=== PATIENT | female | born 1960 | race Caucasian/White ===

== ENCOUNTER 2020-05-01 11:13 | Emergency (ER) | payer MEDICARE, MEDICAID ==
[~2020-05-01] VITALS: Ht 157.5 cm; Wt 80.0 kg
[~2020-05-01 11:13] MED LIST: CLON-528 PO; DES150T PO; FLUO20CA39 PO; IBUP-1984 PO; LAMO25TA62 PO; ZIPR20CA2 PO
[2020-05-01 11:45] LABS: BASOPHILS % (AUTO) 0.8 % (0-1); EOSINOPHILS # (AUTO) 0.2 X10'3 (0-0.9); EOSINOPHILS % (AUTO) 3.4 % (0-6); HEMATOCRIT 40.1 % (35.0-45.0); HEMOGLOBIN 13.7 g/dl (12.0-16.0); LYMPHOCYTES # (AUTO) 1.7 X10'3 (1.1-4.8); LYMPHOCYTES % (AUTO) 39.2 % (21-51); MEAN CORPUSCULAR HEMOGLOBIN 32.8 PG (27.0-31.0); MEAN CORPUSCULAR HGB CONC 34.1 g/dL (33.0-36.5); MEAN CORPUSCULAR VOLUME 96.1 FL (78-98); MEAN PLATELET VOLUME 7.7 FL (7.4-10.4); MONOCYTES # (AUTO) 0.8 X10'3 (0-0.9); MONOCYTES % (AUTO) 18.6 % (2-12); NEUTROPHILS # (AUTO) 1.7 X10'3 (1.8-7.7); PLATELET COUNT 202 X10'3 (140-440); RED BLOOD COUNT 4.17 X10'6 (4.20-5.60); RED CELL DISTRIBUTION WIDTH 13.9 % (11.5-14.5); WHITE BLOOD COUNT 4.4 X10'3 (4.5-11.0)
[2020-05-01 11:59] LABS: ALANINE AMINOTRANSFERASE 12 U/L (12-78); ALBUMIN 2.7 G/DL (3.4-5.0); ALBUMIN/GLOBULIN RATIO 0.7 (1.1-1.5); ALKALINE PHOSPHATASE 68 IU/L (46-116); ANION GAP 8 (8-16); ASPARTATE AMINO TRANSFERASE 17 U/L (10-37); BILIRUBIN,TOTAL 0.2 MG/DL (0.1-1.0); BLOOD UREA NITROGEN 16 MG/DL (7-18); BUN/CREATININE RATIO 13.9 (6.6-38.0); CALCIUM 8.8 MG/DL (8.5-10.1); CHLORIDE 108 MMOL/L (99-107); CREATININE 1.15 MG/DL (0.40-0.90); GLUCOSE 104 MG/DL (70-104); SODIUM 144 MMOL/L (135-145); TOTAL CARBON DIOXIDE 28.2 MMOL/L (24-32); TOTAL PROTEIN 6.4 G/DL (6.4-8.2); eGFR 48 ML/MIN
[2020-05-01 12:07] LABS: ETHANOL < 0.010 GM/DL (0.0-0.010)
[2020-05-01 14:01] LABS: TOTAL CELLS COUNTED 100
[2020-05-01 14:02] LABS: PLATELET ESTIMATE NORMAL
[2020-05-01 15:04] LABS: CLARITY,URINE SLIGHTLY CLOUDY (Clear); GLUCOSE, URINE NEGATIVE (Neg); KETONES,URINE 15 mg/dl (Neg); LEUKOCYTE ESTERASE ,URINE NEGATIVE (Neg); NITRITES, URINE NEGATIVE (Neg); OCCULT BLOOD,URINE NEGATIVE (Neg); PH,URINE 6.5 (4.8-8.0); PROTEIN,URINE NEGATIVE (Neg)
[2020-05-01 15:07] LABS: COLOR,URINE DARK YELLOW (Yellow); UA COLLECTION TYPE CLN CATCH MIDSTREAM
--- NOTE | 2020-05-01 15:11 | NUR ---
PER TALON ORNELAS, I CALLED THE TAD OFFICE AT [facility] [phone]. ALOK STATED THAT THE 4122 WAS WRITTEN DUE TO GRAVELY DISABLED. I PROVIDED MY NAME AND ER NUMBER AND ALOK STATED THAT HER BUSINESS INTELLIGENCE CONSULTANT WILL CALL ME BACK.
[2020-05-01 15:35] LABS: WBC,URINE 0-4 /HPF (0-4)
[2020-05-01 15:36] LABS: BACTERIA,URINE FEW /HPF (Neg); RBC,URINE NONE SEEN /HPF (0-2); SQUAMOUS EPITHELIAL CELL,UR MODERATE /LPF (FEW)
[2020-05-01 15:45] LABS: URINE AMPHETAMINE SCREEN NEGATIVE (Neg); URINE BARBITUATE SCREEN NEGATIVE (Neg); URINE BENZODIAZEPINES SCREEN NEGATIVE (Neg); URINE CANNABINOID SCREEN NEGATIVE (Neg); URINE COCAINE SCREEN NEGATIVE (Neg); URINE METHADONE SCREEN NEGATIVE (Neg); URINE OPIATE SCREEN NEGATIVE (Neg); URINE PHENCYCLIDINE SCREEN NEGATIVE (Neg)
--- NOTE | 2020-05-01 16:16 | NUR ---
SPOKE TO ANANT MARTELL FROM [facility]. PER ANANT, PATIENT HAS BEEN DECOMPENSATING IN THE LAST 3 WEEKS. [facility] NURSE FILLS HER MEDICATION WEEKY PILL BOX, THE NURSE SEES HER DAILY, AND JENNY IS TAKING A WEEKS WORTH OF MEDICATION IN ONE DAY. ALSO, TODAY, PATIENT WAS LAYING IN A URINE SOAKED BED WITH FECAL MATERIAL AROUND HER PLACE AT [facility]. PATIENT HAD NOT SHOWERED IN OVER A WEEK. THE NURSE TODAY CLEANED HER UP AND PUT CLEAN CLOTHES. PATIENT WAS DISCHARGED FROM [facility] WITH A TORSO BRACE WHICH SHE IS WEARING, AT THAT TIME SHE WENT HOME. TALON ORNELAS AWARE OF REASONS FOR GRAVELY DISABLED DETERMINATION
[2020-05-01] MEDS ORDERED: PALI819S INJ (17:07)
[2020-05-01] MEDS ORDERED: OLAN20TA34 PO (17:07)
[2020-05-01] MEDS ORDERED: HYDR-3686 PO (17:07)
[2020-05-01] MEDS ORDERED: DIVA500T9 PO (17:07)
[2020-05-01] MEDS ORDERED: BUPR75TA12 PO (17:07)
[2020-05-01] MEDS ORDERED: LEVO75TA PO (17:47)
--- NOTE | 2020-05-01 19:00 | NUR ---
PT up to use the bathroom, steady gait, no issues
--- NOTE | 2020-05-01 19:42 | NUR ---
Pt is sitting up in bed, went over medications with pt and completed med rec, signed and faxed to pharmacy
[2020-05-01] MEDS ORDERED: hydrOXYzine 25 MG tablet PO PRN (20:10)
[2020-05-01] MEDS ORDERED: clonazePAM 1mg tablet PO ONE (20:45)
[2020-05-01] MEDS: ibuprofen tablet 400 MG TABLET PO PRN (20:59)
[2020-05-01] MEDS ORDERED: lamoTRIgine 25mg tablet PO SCH (21:00)
[2020-05-01] MEDS ORDERED: traZODone 150mg tablet PO SCH (21:00)
[2020-05-01] MEDS ORDERED: divalproex sod 250mg ER (24-hour) tablet PO SCH (21:00)
--- NOTE | 2020-05-01 21:01 | NUR ---
PT IS MEDICATION COMPLIANT, SHE UTILIZES PRN MOTRIN
--- NOTE | 2020-05-01 23:00 | NUR ---
PACKET FAXED TO [facility]
--- NOTE | 2020-05-02 01:17 | NUR ---
PT ASLEEP ON BACK RR 16
[2020-05-02] MEDS: ibuprofen tablet 400 MG TABLET PO PRN ×2 (03:03→14:01)
--- NOTE | 2020-05-02 03:13 | NUR ---
PT WOKE UP TO USE THE RESTROOM AND REQUESTS PRN MOTRIN AND ATARAX WHICH IS GIVEN TO HER.
--- NOTE | 2020-05-02 04:58 | NUR ---
Pt resting in bed, given blanket and helped into position of comfort.
[2020-05-02 05:09] VITALS: BP 104/53
[2020-05-02] MEDS ORDERED: levoTHYROXINE 25mcg tablet PO SCH (07:00)
[2020-05-02] MEDS ORDERED: clonazePAM 1mg tablet PO SCH (08:00)
--- NOTE | 2020-05-02 10:00 | NUR ---
PT MOVED FROM ER BED 14 TO OVERFLOW BED 23.
--- NOTE | 2020-05-02 11:30 | NUR ---
Pt was accepted by [facility]
--- NOTE | 2020-05-02 13:55 | NUR ---
PT SAT UP IN CHAIR NEXT TO BED AND ATE LUNCH
--- NOTE | 2020-05-02 14:24 | NUR ---
PT ASSISTED BACK INTO BED AND NOW RESTING
[2020-05-02] MEDS ORDERED: OLAN20TA3 PO (17:54)
[2020-07-30] MEDS ORDERED: PALIPERIDONE PALMITATE 819 MG IM SCH (08:00)
== END 2020-05-02 15:54 | disposition home or self-care (01) ==
LOC: ER 11:13
DX: F31.9 Bipolar disorder, unspecified (principal); E78.00 Pure hypercholesterolemia, unspecified; Z88.0 Allergy status to penicillin; Z88.5 Allergy status to narcotic agent; Z88.8 Allergy status to other drugs, medicaments and biological substances; Z79.899 Other long term (current) drug therapy
CPT/HCPCS: 36415; 80053; 80305; 80320; 81001; 84443; 85007; 85025; 99285; Q0177

== ENCOUNTER 2022-02-12 14:34 | Emergency (ER) | payer BC, MEDICAID ==
[~2022-02-12] VITALS: Ht 162.6 cm; Wt 68.2 kg
[~2022-02-12 14:34] MED LIST changes: -CLON-528 PO; -DES150T PO; +DIVA500T9 PO; -FLUO20CA39 PO; +HYDR-3686 PO; -LAMO25TA62 PO; +LEVO75TA PO; +OLAN20TA3 PO; +PALI819S INJ; -ZIPR20CA2 PO
[2022-02-12 15:00] VITALS: BP 117/60
== END 2022-02-12 22:00 | disposition left against medical advice (07) ==
LOC: ER 14:34
DX: E86.0 Dehydration (principal); Z53.21 Procedure and treatment not carried out due to patient leaving prior to being seen by health care provider